=== PATIENT | male | born 1990 | race Caucasian/White ===

== ENCOUNTER → 2020-05-25 | Outpatient (CLI) | payer OTHER, BC ==
--- NOTE | 2020-05-25 14:16 | KCIC ---
EXAMINATION: MRI RIGHT SHOULDER WITHOUT IV CONTRAST CLINICAL HISTORY: Right shoulder pain and limited range of motion since fell from a ladder in January. TECHNIQUE: Multiplanar multisequential images obtained through the shoulder without intravenous contrast. COMPARISON: None FINDINGS: TENDONS: - Supraspinatus: Mild tendinosis without tear. - Infraspinatus: Mild tendinosis without tear. - Subscapularis: Within normal limits. - Teres Minor: Within normal limits. - Biceps Tendon: The long head biceps tendon is intact and appropriately located. MUSCLES: Muscle bulk and signal intensity are within normal limits. LABRUM: No discrete tear. GLENOHUMERAL JOINT: - Joint Fluid: No joint effusion or synovitis. - Cartilage: Within normal limits. ACROMIOCLAVICULAR JOINT: Within normal limits. BONES/MARROW: No evidence of acute fracture or suspicious marrow replacing process. OTHER: Mild thickening and fluid distention of the subacromial/subdeltoid bursa. IMPRESSION: Mild rotator cuff tendinosis without full-thickness tear. Findings compatible with mild subacromial/subdeltoid bursitis. Electronically signed by: Robb Roberts DO (05/25/2020 2:12 PM) [id number]
== END ==
LOC: KCIC MRI 12:34
DX: S46.911D Strain of unspecified muscle, fascia and tendon at shoulder and upper arm level, right arm, subsequent encounter (principal); M77.8 Other enthesopathies, not elsewhere classified; X58.XXXD Exposure to other specified factors, subsequent encounter
CPT/HCPCS: 73221